=== PATIENT | female | born 1940 | race Caucasian/White ===

== ENCOUNTER 2016-06-28 23:56 | Emergency (ER) | payer MEDICARE, OTHER | END 2016-06-29 01:56 | disposition short-term general hospital (02) | LOC: ER 23:56 | DX: J81.1 Chronic pulmonary edema (principal); I35.0 Nonrheumatic aortic (valve) stenosis; I10 Essential (primary) hypertension ==

== ENCOUNTER → 2016-08-15 | Outpatient (CLI) | payer MEDICARE, OTHER | END | disposition short-term general hospital (02) | LOC: CLCARD 10:23 | DX: I25.10 Atherosclerotic heart disease of native coronary artery without angina pectoris (principal); I35.0 Nonrheumatic aortic (valve) stenosis; J44.9 Chronic obstructive pulmonary disease, unspecified; I73.9 Peripheral vascular disease, unspecified; E66.9 Obesity, unspecified; E78.5 Hyperlipidemia, unspecified; Z95.1 Presence of aortocoronary bypass graft; Z95.2 Presence of prosthetic heart valve ==

== ENCOUNTER → 2016-10-10 | Outpatient (CLI) | payer MEDICARE, OTHER | END | disposition short-term general hospital (02) | LOC: CLCARD 09:01 | DX: I25.10 Atherosclerotic heart disease of native coronary artery without angina pectoris (principal); E78.5 Hyperlipidemia, unspecified; J44.9 Chronic obstructive pulmonary disease, unspecified; Q24.4 Congenital subaortic stenosis; E66.9 Obesity, unspecified; I73.9 Peripheral vascular disease, unspecified; Z95.1 Presence of aortocoronary bypass graft; Z95.2 Presence of prosthetic heart valve ==